=== PATIENT | female | born 1945 | race Caucasian/White ===

== ENCOUNTER 2016-05-30 09:43 | Emergency (ER) | payer MEDICARE, BC ==
[~2016-05-30] VITALS: Ht 165.1 cm; Wt 66.0 kg
[2016-05-30 09:49] VITALS: BP 161/94; PULSE 76; RESP 16; TEMP 98.5; O2SAT 98
[2016-05-30] MEDS ORDERED: LIFI1DRO EACH EYE (10:20)
[2016-05-30] MEDS ORDERED: AMLO5TAB2 PO (10:20)
[2016-05-30] MEDS ORDERED: VITA250C3 CHEW (10:20)
[2016-05-30] MEDS ORDERED: OMEP20TA PO (10:20)
[2016-05-30] MEDS ORDERED: LISI40TA PO (10:20)
[2016-05-30] MEDS ORDERED: FOLI1TAB4 PO (10:20)
[2016-05-30] MEDS ORDERED: LEXA10TA PO (10:20)
[2016-05-30] MEDS ORDERED: LIPI20TA PO (10:20)
[2016-05-30] MEDS ORDERED: PRED5TAB PO (10:20)
[2016-05-30] MEDS ORDERED: CALC600T10 PO (10:20)
[2016-05-30] MEDS ORDERED: METH2.5T PO (10:20)
--- NOTE | 2016-05-30 10:20 | PD ---
HPI Chief Complaint: Complaint Time Seen by Provider: 10:04 Travel History International Travel<30 days: No Contact w/Intl Traveler<30days: No Traveled to known affect area: No History of Present Illness HPI The patient was seen and examined in the presence of the nurse. 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 She complains of dysuria and blood in her urine. She's had frequent bladder infections in the past. She is not having flank pain. She reports that she had a temp of 101 yesterday. She went to an urgent care center and they sent her here because there was blood in her urine. They told her she needed a CAT scan. Symptom severity is mild. She takes no blood thinners PFSH Past Medical History Arthritis: Yes (RA) High Cholesterol: Yes Hypertension: Yes Past Surgical History Cholecystectomy: Yes Hysterectomy: Yes Tonsillectomy: Yes Social History Alcohol Use: No Tobacco Use: No Allergies-Medications (Allergen,Severity, Reaction): Coded Allergies: Morphine (Verified Allergy, Unknown, 05/30/16) Trazodone (Verified Allergy, Unknown, 05/30/16) Reported Meds & Prescriptions Reported Meds & Active Scripts Active Reported Lisinopril 40 Mg Tab 40 Mg PO DAILY Lipitor (Atorvastatin Calcium) 20 Mg Tab 20 Mg PO HS Prednisone 5 Mg Tab 5 Mg PO DAILY Methotrexate 2.5 Mg Tab 20 Mg PO Q7D Folate (Folic Acid) 1 Mg Tab 1 Mg PO DAILY Vitamin C (Ascorbic Acid) 250 Mg Chew 250 Mg CHEW DAILY Lexapro (Escitalopram Oxalate) 10 Mg Tab 10 Mg PO DAILY Calcium + D3 (Calcium Carbonate-Cholecalciferol) 600-200 Mg-Unit Tab 1 Tab PO DAILY Omeprazole 20 Mg Tab 20 Mg PO DAILY Xiidra Opth Drops (Lifitegrast Opth Drops) 5% Drops 1 Drop EACH EYE BID Amlodipine (Amlodipine Besylate) 5 Mg Tab 5 Mg PO DAILY Review of Systems General / Constitutional: Positive: Fever Eyes: No: Visual changes HENT: No: Headaches Cardiovascular: No: Chest Pain or Discomfort Respiratory: No: Shortness of Breath Gastrointestinal: No: Abdominal Pain Genitourinary: Positive: Dysuria, Hematuria Musculoskeletal: No: Pain Skin: No Rash Neurologic: No: Weakness Psychiatric: No: Depression Endocrine: No: Polydipsia Hematologic/Lymphatic: No: Easy Bruising Physical Exam Narrative GENERAL: Well-nourished, well-developed patient. SKIN: Warm and dry. HEAD: Normocephalic. EYES: No scleral icterus. No injection or drainage. NECK: Supple, trachea midline. No JVD or lymphadenopathy. CARDIOVASCULAR: Regular rate and rhythm without murmurs, gallops, or rubs. RESPIRATORY: Breath sounds equal bilaterally. No accessory muscle use. GASTROINTESTINAL: Abdomen soft, non-tender, nondistended. MUSCULOSKELETAL: No cyanosis, or edema. BACK: Nontender without obvious deformity. No CVA tenderness. Data Data Last Documented VS Vital Signs Date Time Temp Pulse Resp B/P Pulse Ox O2 Delivery O2 Flow Rate FiO2 05/30/16 09:49 98.5 76 16 161/94 98 Orders Urinalysis - C+S If Indicated (05/30/16 09:55) Labs Laboratory Tests Test 05/30/16 10:06 Urine Collection Type CLEAN CATCH Urine Color RED Urine Turbidity MARKED Urine pH 6.0 Urine Specific [place] 1.014 Urine Protein 30 mg/dL Urine Glucose (UA) NEG mg/dL Urine Ketones NEG mg/dL Urine Occult Blood LARGE Urine Nitrite NEG Urine Bilirubin NEG Urine Leukocyte Esterase MOD Urine RBC INNUM /hpf Urine WBC 3-5 /hpf Urine Squamous Epithelial 0-5 /hpf Cells Urine Transitional Epithelial 0-5 /hpf Cells Urine Amorphous Sediment FEW Microscopic Urinalysis Comment CULT NOT INDICATED Urine Collection Time 1006 MDM Medical Decision Making Medical Screen Exam Complete: Yes Emergency Medical Condition: Yes Medical Record Reviewed: Yes Differential Diagnosis Cystitis, kidney stone, UTI Narrative Course I have reviewed the patient's electronic medical record. Urinalysis shows innumerable red cells without sign of infection She presents here basically with asymptomatic gross hematuria Is not having a clinical presentation consistent with kidney stone Recommending urology follow-up to discuss cystoscopy/imaging Diagnosis Primary Impression: Gross hematuria Additional Instructions: The patient was advised to follow up with Dr. Guerrero, urologist Med/Other Pt SpecificInfo: Other Disposition: 01 DISCHARGE HOME Condition: Stable Rubio Ramírez MD May 30, 2016 10:20
[2016-05-30 10:23] LABS: BLOOD, URINE LARGE (NEG); GLUCOSE,URINE NEG (NEG); KETONE, URINE NEG (NEG); NITRITE,URINE NEG (NEG)
[2016-05-30 10:26] LABS: METHOD OF COLLECTION CLEAN CATCH; URINE COLOR RED (YELLW/STRAW)
[2016-05-30 10:28] LABS: COMMENT (UR) CULT NOT INDICATED; CULTURE IF INDICATED CULT NOT INDICATED; RBC, URINE INNUM /hpf (0-3); SQUAMOUS EPITHELIAL CELL URINE 0-5 /hpf (0-5)
[2016-05-30 10:29] LABS: TRANSITIONAL EPI CELLS, URINE 0-5 /hpf
== END 2016-05-30 11:03 | disposition home or self-care (01) ==
LOC: PHED 09:43
DX: R31.0 Gross hematuria (principal)
CPT/HCPCS: 81001; 99283